=== PATIENT | male | born 1995 | race Caucasian/White ===

== ENCOUNTER 2024-07-03 11:05 | Emergency (ER) | payer OTHER ==
[~2024-07-03] VITALS: Ht 175.3 cm; Wt 63.5 kg
[~2024-07-03 11:05] MED LIST: OMEPRAZOLE20 M1 PO
[2024-07-03] MEDS ORDERED: METHYLPHENIDATE36 MG PO (11:19)
[2024-07-03] MEDS ORDERED: PAROXETINE HCL20 MG PO (11:20)
[2024-07-03] MEDS ORDERED: HYDROXYZINE HCL10 MG PO (11:21)
[2024-07-03] MEDS ORDERED: KETOROLAC TROMETHAMINE 30 MG/ML VIAL IM ONE (11:30)
[2024-07-03] MEDS ORDERED: ACETAMINOPHEN 325 MG TAB PO ONE (11:30)
[2024-07-03] MEDS ORDERED: CYCLOBENZAPRINE HCL 10 MG TAB PO ONE (11:30)
[2024-07-03 12:35] LABS: BILIRUBIN, URINE NEGATIVE (negative); BLOOD/HGB, URINE NEGATIVE (Negative); KETONE, URINE NEGATIVE (Negative); LEUK ESTERASE, URINE NEGATIVE (negative); NITRITE, URINE NEGATIVE (negative)
[2024-07-03] MEDS ORDERED: CYCLOBENZAPRINE10 MG PO (12:49)
[2024-07-03 12:57] VITALS: BP 142/104
== END 2024-07-03 12:57 | disposition home or self-care (01) ==
LOC: ED 11:05
PROVIDERS: Emergency Medicine
DX: M54.9 Dorsalgia, unspecified (principal); Z79.899 Other long term (current) drug therapy
CPT/HCPCS: 81003; 96372; 99284; A9270; J1885